=== PATIENT | female | born 1935 | race Caucasian/White ===

== ENCOUNTER 2018-04-01 13:40 | Observation (INO) | payer OTHER ==
--- NOTE | 2018-04-01 13:42 | PDOC ---
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 The patient reports getting out of her car, standing for a few moments, feeling lightheaded, and then falling to the ground. She remembers falling, hitting her head, and denies LOC. She then was unable to stand. She was eventually able to get back into her car. She sat for some time, was able to make it back into her apartment with her husbands help. She was in her recliner for 2d. She ambulated in her apartment yesterday with her walker. This AM she awoke with acute on chronic back and knee pain and decided to present for evaluation. Denies fevers/chills, recent illness, current QUISPE, vision changes, acute changes in sensation, chest pain, SOB, abdominal pain, N/V/C/D. 04/01/18 14:29 Past History - Past Medical History Allergies/Adverse Reactions: Allergies Allergy/AdvReac Type Severity Reaction Status Date / Time Penicillins Allergy Rash Verified 04/01/18 14:21 Home Medications: Ambulatory Orders Aspirin [ASA -] 81 mg PO DAILY 05/08/13 Atorvastatin Ca [Lipitor] 80 mg PO HS 05/08/13 Nebivolol HCl [Bystolic] 10 mg PO HS 05/08/13 Ranolazine [Ranexa -] 1,000 mg PO BID 05/08/13 Sertraline HCl [Zoloft -] 100 mg PO HS 05/08/13 Acetaminophen [Tylenol .Regular Strength -] 650 mg PO Q6H PRN #0 tablet Calcitonin-[place] [Miacalcin [place] -] 200 units NS DAILY #0 spray.pump 04/16/14 Calcium 250Mg/Vit-D 125 Units [Oscal 250 mg+D -] 1 combo PO BID #0 tablet Olmesartan Medoxomil [Benicar -] 20 mg PO DAILY #30 tablet 04/16/14 Beta-Carotene(A) W-C and E/Min [Ocuvite (Nf) -] 1 tab PO DAILY 04/01/18 Cholecalciferol (Vitamin D3) [Vitamin D3] 5,000 unit PO DAILY 04/01/18 Ezetimibe [Zetia] 10 mg PO DAILY 04/01/18 Icosapent Ethyl [Vascepa] 2 gm PO BID 04/01/18 Multivit/Folic Acid/Vit K1 [One-A-Day Women's 50 Plus Tab] 1 each PO DAILY 04/01 Vit B Complex 100 Combo No.2 [B-100 Complex] 100 mg PO DAILY 04/01/18 Anemia: No Asthma: No Cancer: No Cardiac Disorders: Yes (CARDIAC STENTS...3 years ago) CVA: No COPD: No CHF: No Dementia: No Diabetes: No GI Disorders: No Disorders: No HTN: Yes Hypercholesterolemia: No Liver Disease: No Psychiatric Problems: Yes (anxiety) Seizures: No Thyroid Disease: No - Surgical History Cholecystectomy: Yes (1994) - Suicide/Smoking/Psychosocial Hx Smoking Status: No Smoking History: Never smoked Have you smoked in the past 12 months: No Number of Cigarettes Smoked Daily: 0 Hx Alcohol Use: No Drug/Substance Use Hx: No Substance Use Type: None Hx Substance Use Treatment: No Review of Systems - Review of Systems Able to Perform ROS?: Yes Comments:: GENERAL/CONSTITUTIONAL: No fever or chills. No weakness HEAD, EYES, EARS, NOSE AND THROAT: No change in vision. No ear pain or discharge. No sore throat CARDIOVASCULAR: No chest pain or shortness of breath RESPIRATORY: Denies cough, hemoptysis GASTROINTESTINAL: No nausea, vomiting, diarrhea or constipation GENITOURINARY: No dysuria, frequency, or change in urination MUSCULOSKELETAL: per HPI SKIN: No rash NEUROLOGIC: No headache, vertigo, loss of consciousness, or change in strength/ sensation ENDOCRINE: No increased thirst. No abnormal weight change HEMATOLOGIC/LYMPHATIC: No anemia, easy bleeding ALLERGIC/IMMUNOLOGIC: No hives or skin allergy 04/01/18 14:31 Is the patient limited Israeli proficient: No *Physical Exam - Vital Signs Vital Signs Temp Pulse Resp BP Pulse Ox 97.7 F 80 16 170/80 100 04/01/18 13:41 04/01/18 13:41 04/01/18 13:41 04/01/18 13:41 04/01/18 13:41 04/01/18 14:31 - Physical Exam Comments: GENERAL: Awake, alert, and fully oriented, in no acute distress HEAD: left lateral orbital healing ecchymosis, no abrasion or laceration EYES: PERRLA, EOMI, sclera anicteric, conjunctiva clear ENT: Hearing grossly normal, nares patent, oropharynx clear without exudates. Moist mucosa LUNGS: No distress, speaks full sentences, clear to auscultation bilaterally HEART: Regular rate and rhythm, normal S1 and S2, no murmurs appreciated, peripheral pulses normal and equal bilaterally ABDOMEN: Soft, nontender, normoactive bowel sounds. No guarding, no rebound EXTREMITIES: No wounds or lesions. Strength 5/5 in BUE throughout. B/l knees w/ o palpable intraarticular effusion, overlying erythema, or bony TTP. No obvious BLE deformities. NEUROLOGICAL: Cranial nerves II through XII grossly intact. Normal speech, no focal sensorimotor deficits SKIN: 04/01/18 14:31 ED Treatment Course - LABORATORY CBC & Chemistry Diagram: 04/01/18 14:45 04/01/18 14:45 Medical Decision Making - Medical Decision Making The pt is an 83F w/ a history of HTN, OA, vertebral compression fractures who presents for evaluation for acute on chronic back and b/l knee pain s/p syncopal fall on 03/28/2018 (4d ORAL HYGIENIST). Pt w/ L lateral orbital healing ecchymosis w/o underlying bony crepitus. ED Course CMP, CBC, UA, UCx CT Head w/o, CXR ECG 04/01/18 14:39 No leukocytosis No anemia Lytes wnl No JUSTUS LFTs wnl 04/01/18 15:59 CT Head w/o evidence of acute bleed 04/01/18 16:33 L proximal tib/fib fx seen in L knee plain films -Will obtain dedicated tib/fib films Dispo: Admit for tib/fib fx 04/01/18 17:40 *DC/Admit/Observation/Transfer Diagnosis at time of Disposition: Syncope Qualifiers: Syncope type: unspecified Qualified Code(s): R55 - Syncope and collapse Fall Qualifiers: Encounter type: initial encounter Qualified Code(s): W19.XXXA - Unspecified fall, initial encounter Back pain Qualifiers: Back pain location: low back pain Chronicity: unspecified Back pain laterality : bilateral Sciatica presence: unspecified whether sciatica present Qualified Code(s): M54.5 - Low back pain Tibia/fibula fracture Qualifiers: Encounter type: initial encounter Fracture type: closed Laterality: left Qualified Code(s): S82.202A - Unspecified fracture of shaft of left tibia, initial encounter for closed fracture; S82.402A - Unspecified fracture of shaft of left fibula, initial encounter for closed fracture - Discharge Dispostion Disposition: INTERMEDIATE FACILITY Condition at time of disposition: Stable Decision to Admit order: Yes - Referrals - Patient Instructions - Post Discharge Activity
[2018-04-01 15:05] LABS: BASO % 0.4 % (0-2.0); EOS % 2.5 % (0-4.5); HEMATOCRIT 40.7 % (32.4-45.2); HEMOGLOBIN 13.1 GM/dl (10.7-15.3); LYMPH % 23.1 % (8-40); MCH 33.7 pg (25.7-33.7); MCHC 32.2 g/dl (32.0-36.0); MEAN CELL VOLUME 104.5 fl (80-96); MEAN PLT VOLUME 11.8 fl (7.5-11.1); MONO % 6.6 % (3.8-10.2); NEUT % 67.4 % (42.8-82.8); PLATELET COUNT 179 K/MM3 (134-434); RBC 3.89 M/mm3 (3.60-5.2); RDW 12.2 % (11.6-15.6); WHITE BLOOD COUNT 8.1 K/mm3 (4.0-10.8)
[2018-04-01 15:14] LABS: ALBUMIN 3.6 g/dl (3.4-5.0); ALK PHOS 78 U/L (45-117); ANION GAP 11 MMOL/L (8-16); BILIRUBIN,TOTAL 1.2 mg/dl (0.2-1); BLOOD UREA NITROGEN 20 mg/dl (7-18); CALCIUM 9.4 mg/dl (8.5-10); CHLORIDE 102 mmol/L (98-107); CO2 25 mmol/L (21-32); CREATININE 0.7 mg/dl (0.55-1.3); GLUCOSE,RANDOM 116 mg/dl (74-106); POTASSIUM 4.8 mmol/L (3.5-5.1); SGOT/AST 43 U/L (15-37); SGPT/ALT 29 U/L (13-61); SODIUM 138 mmol/L (136-145); TOT PROT 6.4 g/dl (6.4-8.2)
--- NOTE | 2018-04-01 17:36 | PDOC ---
Attending Attestation - Resident Resident Name: Roger Shaikh - ED Attending Attestation I have performed the following: I have examined & evaluated the patient, The case was reviewed & discussed with the resident, I agree w/resident's findings & plan, Exceptions are as noted - HPI HPI: 04/01/18 17:36 Reviewed Residents HPI - Physicial Exam PE: 04/01/18 17:36 Reviewed Residents PE - Medical Decision Making 04/01/18 19:09 83 years old with syncopal episode complicated by knee injury and low back injury On x-rays L2 compression fracture likely chronic. MRI ordered for comparisson Proximal tib-fib fracture nonoperative Orthopedics consult and limits medicine for telemetry for syncope workup and further management.
--- NOTE | 2018-04-01 17:46 | HP ---
CHIEF COMPLAINT: LE pain, syncope PCP: Dr. Young HISTORY OF PRESENT ILLNESS: Patient presents to -ER with a CC of fall/syncope and leg pain. Syncopized at home on ; didn't remember how she fell but remembered waking up; + LOC and she did hit her head with some resulting minor facial trauma with bruising around her eye. Speaking to her at length about this reveals that she was going from sitting to standing and had her BP checked and was on the low end before this happened (was after MD appointment); this is very suspect for orthostatic hypotension. She is afebrile and hemodynamically stable without any marked laboratory abnormalities. Orthopedics called by ER; recommends knee immobilizer and non-weightbearing. She doesn't need to be NPO. Review of her cardiac hx reveals a remote PCI; she is not sure she why she is on ranolazine but doesn't have any refractory anginal sx at this time. Denies CP, SOB, etc. Monitoring on telemetry with orthopedic consult. Thank you for allowing [facility] to take part in the ongoing care of this patient. PAST MEDICAL HISTORY: HTN, Osteoporosis, HLD, CAD s/p remote PCI PAST SURGICAL HISTORY: Social History: Denies alcohol, tobacco, or drug abuse Family History: Asked and noncontributory Allergies Penicillins Allergy (Verified 04/01/18 14:21) Rash HOME MEDICATIONS: Home Medications Medication Instructions Recorded Aspirin [ASA -] 81 mg PO DAILY 05/08/13 Atorvastatin Ca [Lipitor] 80 mg PO HS 05/08/13 Nebivolol HCl [Bystolic] 10 mg PO HS 05/08/13 Ranolazine [Ranexa -] 1,000 mg PO BID 05/08/13 Sertraline HCl [Zoloft -] 100 mg PO HS 05/08/13 Acetaminophen [Tylenol .Regular 650 mg PO Q6H PRN #0 tablet 04/16/14 Strength -] Calcitonin-[place] [Miacalcin Alpha 200 units NS DAILY #0 spray.pump 04/16/14 -] Calcium 250Mg/Vit-D 125 Units 1 combo PO BID #0 tablet 04/16/14 [Oscal 250 mg+D -] Olmesartan Medoxomil [Benicar -] 20 mg PO DAILY #30 tablet 04/16/14 Beta-Carotene(A) W-C and E/Min 1 tab PO DAILY 04/01/18 [Ocuvite (Nf)] Cholecalciferol (Vitamin D3) 5,000 unit PO DAILY 04/01/18 [Vitamin D3] Ezetimibe [Zetia] 10 mg PO DAILY 04/01/18 Icosapent Ethyl [Vascepa] 2 gm PO BID 04/01/18 Multivit/Folic Acid/Vit K1 1 each PO DAILY 04/01/18 [One-A-Day Women's 50 Plus Tab] Vit B Complex 100 Combo No.2 100 mg PO DAILY 04/01/18 [B-100 Complex] REVIEW OF SYSTEMS 10 sys ROS done and negative aside from HPI PHYSICAL EXAMINATION Vital Signs - 24 hr 04/01/18 13:41 Temperature 97.7 F Pulse Rate 80 Respiratory 16 Rate Blood Pressure 170/80 O2 Sat by Pulse 100 Oximetry (%) GENERAL: Awake, alert, and fully oriented, in no acute distress. HEAD: NC, trauma as per HPI with small bruising that appears healed, EOMI, PERRLA EYES: Pupils equal, round and reactive to light, extraocular movements intact EARS, NOSE, THROAT: Ears normal, nares patent, oropharynx clear without exudates. NECK: Normal range of motion, supple without lymphadenopathy, JVD, or masses. LUNGS: Breath sounds equal, clear to auscultation bilaterally. HEART: Regular rate and rhythm, normal S1 and S2 without murmur, rub or gallop. ABDOMEN: Soft, nontender, not distended, normoactive bowel sounds MUSCULOSKELETAL: Normal range of motion at all joints aside from LLE which is limited by pain. Affected extremity is neurovascularly intact NEUROLOGICAL: Cranial nerves II-XII intact. Normal speech. Normal gait. PSYCHIATRIC: Cooperative. Good eye contact. Appropriate mood and affect. SKIN: Warm, dry, normal turgor, no rashes or lesions noted, normal capillary refill. Laboratory Results - last 24 hr 04/01/18 04/01/18 14:45 14:45 WBC 8.1 RBC 3.89 Hgb 13.1 Hct 40.7 D MCV 104.5 H MCH 33.7 MCHC 32.2 RDW 12.2 Plt Count 179 MPV 11.8 H Absolute Neuts (auto) 5.4 Neutrophils % 67.4 Lymphocytes % 23.1 Monocytes % 6.6 Eosinophils % 2.5 Basophils % 0.4 Sodium 138 Potassium 4.8 Chloride 102 Carbon Dioxide 25 Anion Gap 11 BUN 20 H Creatinine 0.7 Creat Clearance w eGFR > 60 Random Glucose 116 H Calcium 9.4 Total Bilirubin 1.2 H AST 43 H ALT 29 Alkaline Phosphatase 78 Total Protein 6.4 Albumin 3.6 ASSESSMENT/PLAN: Patient presents for syncope found to have a LE fracture; orthopedics is following and expert opinion is appreciated. 1) Syncope -History suspicious for Orthostasis; check orthostatic VS but keeping in mind NWB on affected extremity so likely only lying to sititng. -Check echo and monitor on tele. Given history of CAD, HLD, she has sufficient risks to justify checking duplex. -CT head negative, no electrolyte abnormalities, no recurrance. No s/s ACS. -If needed can consider CV consult in AM depending on clinical presentation and further workup. 2) Tib/Fib fx -Imaging noted; management per orthopedic sgy -NWB, knee imobilizer, PT consult. -PRN Morphine with ATC APAP; PRN miralax. 3) ? Compression fx -No neurologic sx, no s/s cauda equina -MRI pending; old records pending. She has a known L2 compression fx. Compare and if needed consult sgy. 4) HTN -Continue home medications 5) HLD -Continue home medications; OP followup with ortho 6) CAD s/p remote PCI -History noted; no sx. Will continue home medications; encourage close OP followup FENA -LR@60cc/hr overnight -PRN replete -NPO after MN; start fluids when NPO -Per orthopedic sgy Full Code
[2018-04-01 17:57] LABS: PH,URINE 5.5 (4.5-8); URINE APPEARANCE Cloudy; URINE BILIRUBIN 1+ (NEGATIVE); URINE COLOR Dark; URINE GLUCOSE (UA) Negative (NEGATIVE); URINE KETONE 1+ (NEGATIVE); URINE LEUK ESTERASE Negative (NEGATIVE); URINE NITRITE Negative (NEGATIVE); URINE PROTEIN Trace (NEGATIVE); URINE UROBILINOGEN 0.2 (0.2-1.0)
[2018-04-01 20:35] VITALS: BMI 33.3
[2018-04-01] MEDS ORDERED: RANOLAZINE E.R. 500 MG TABLET (FP) ONE (21:53)
[2018-04-01] MEDS: ACETAMINOPHEN 325 MG TABLET (FP) PO SCH (21:55)
[2018-04-01] MEDS: ATORVASTATIN CA 80 MG TABLET (FP) PO SCH (21:56)
[2018-04-01] MEDS: HEPARIN NA (PORCINE) 5,000 UNITS/ML 1ML VIAL SQ SCH (21:56)
[2018-04-01] MEDS: OMEGA-3 ACID ETHYL ESTERS (FATTY-ACIDS) 1 GM CAPSULE (FP) PO SCH (21:56)
[2018-04-01] MEDS: NEBIVOLOL 10 MG TABLET (FP) PO SCH (21:56)
[2018-04-01] MEDS: SERTRALINE HCL 50 MG TABLET (FP) PO SCH (21:56)
[2018-04-01] MEDS: RANOLAZINE E.R. 1,000 MG TABLET (FP) PO SCH (21:56)
[2018-04-01] MEDS: CALCIUM 250MG/VIT-D 125 UNITS 1 COMBO TABLET PO SCH (21:57)
[2018-04-01] MEDS ORDERED: PATIENT'S OWN MEDICATION (NON-FORMULARY) (Icosapent Ethyl [Vascepa] 2 GM) PO SCH (22:00)
[2018-04-01] MEDS ORDERED: PATIENT'S OWN MEDICATION (NON-FORMULARY) (Sertraline Hcl [Zoloft -] 100 MG) PO SCH (22:00)
[2018-04-01] MEDS ORDERED: RANOLAZINE E.R. 500 MG TABLET (FP) PO SCH (22:00)
[2018-04-01] MEDS ORDERED: ATORVASTATIN CA 20 MG TABLET (FP) PO SCH (22:00)
[2018-04-01] MEDS ORDERED: CALCIUM 250MG/VIT-D 125 UNITS 1 COMBO TABLET PO SCH (22:00)
[2018-04-02] MEDS: morphine SULFATE 4 MG/ML VIAL IVPUSH PRN ×3 (00:17→21:51)
[2018-04-02] MEDS: ACETAMINOPHEN 325 MG TABLET (FP) PO SCH ×4 (06:03→21:48)
--- NOTE | 2018-04-02 07:23 | PN ---
Physical Exam: SUBJECTIVE: Patient seen and examined at bedside. Has back pain with movement, no pain when lying still. Has had no pain at all in left leg or left foot since the fall on 03/28/18. OBJECTIVE: Vital Signs Period Temp Pulse Resp BP Sys/Clay Pulse Ox Last 24 Hr 97.7 F-98.5 F 61-91 16-20 127-170/55-80 95-100 GENERAL: The patient is awake, alert, and fully oriented, in no acute distress. HEAD: small ecchymosis lateral left eye LUNGS: Breath sounds equal, clear to auscultation bilaterally, no wheezes, no crackles, no accessory muscle use. HEART: Regular rate and rhythm, S1, S2 ABDOMEN: Soft, nontender, nondistended LEFT LOWER EXT: in leg immobilizer; 2+ DP pulse, warm, well-perfused, ecchymosis 2nd and 3rd digits NEUROLOGICAL: Cranial nerves II through XII grossly intact. Normal speech, gait not observed. Laboratory Results - last 24 hr 04/01/18 04/01/18 04/01/18 14:45 14:45 17:30 WBC 8.1 RBC 3.89 Hgb 13.1 Hct 40.7 D MCV 104.5 H MCH 33.7 MCHC 32.2 RDW 12.2 Plt Count 179 MPV 11.8 H Absolute Neuts (auto) 5.4 Neutrophils % 67.4 Lymphocytes % 23.1 Monocytes % 6.6 Eosinophils % 2.5 Basophils % 0.4 Sodium 138 Potassium 4.8 Chloride 102 Carbon Dioxide 25 Anion Gap 11 BUN 20 H Creatinine 0.7 Creat Clearance w eGFR > 60 Random Glucose 116 H Calcium 9.4 Total Bilirubin 1.2 H AST 43 H ALT 29 Alkaline Phosphatase 78 Total Protein 6.4 Albumin 3.6 Urine Color Dark Urine Appearance Cloudy Urine pH 5.5 Ur Specific [place] >= 1.030 Urine Protein Trace Urine Glucose (UA) Negative Urine Ketones 1+ H Urine Blood Negative Urine Nitrite Negative Urine Bilirubin 1+ H Urine Urobilinogen 0.2 Ur Leukocyte Esterase Negative Active Medications Generic Name Dose Route Start Last Admin Trade Name Freq PRN Reason Stop Dose Admin Acetaminophen 650 mg 04/01/18 20:15 04/02/18 06:03 Tylenol - PO Not Given Q6H [facility] Aspirin 81 mg 04/02/18 10:00 Asa - PO DAILY [facility] Atorvastatin Calcium 80 mg 04/01/18 22:00 04/01/18 21:56 Lipitor - PO 80 mg HS [facility] Administration Calcitonin 200 units 04/02/18 10:00 Miacalcin [place] - NS DAILY [facility] Calcium/Vitamin D 1 tab 04/01/18 22:00 04/01/18 21:57 Oscal 250 Mg+D - PO Not Given BID [facility] Cholecalciferol 5,000 unit 04/02/18 10:00 Vitamin D3 - PO DAILY [facility] Ezetimibe 10 mg 04/02/18 10:00 Zetia - PO DAILY [facility] Heparin Sodium (Porcine) 5,000 unit 04/01/18 22:00 04/01/18 21:56 Heparin - SQ 5,000 unit BID [facility] Administration Morphine Sulfate 2 mg 04/01/18 19:55 04/02/18 00:17 Morphine Sulfate IVPUSH 2 mg Q4H PRN Administration PAIN LEVEL 7 - 10 Nebivolol 10 mg 04/01/18 22:00 04/01/18 21:56 Bystolic - PO 10 mg HS [facility] Administration Nilgg-2-Leeg Ethyl Esters 2 gm 04/01/18 22:00 04/01/18 21:56 Lovaza - PO 2 gm BID [facility] Administration Ranolazine 1,000 mg 04/01/18 22:00 04/01/18 21:56 Ranexa - PO 1,000 mg BID [facility] Administration Sertraline HCl 100 mg 04/01/18 22:00 04/01/18 21:56 Zoloft - PO 100 mg HS [facility] Administration Valsartan 160 mg 04/02/18 10:00 Diovan - PO DAILY [facility] Vitamin A 10,000 units 04/02/18 10:00 Aquasol A - PO DAILY [facility] ASSESSMENT/PLAN 83 year-old female with a PMH significant for HTN, HLD, CAD s/p PCI, OA, compression fractures, and lower extremity neuropathy. Placed on observation for syncopal episode on 03/28 which led to a fall-->+LOC-->right tib-fib fracture -->acute compression fracture L1. Syncope --serial troponins negative --ECG: not suggestive of acute ischemic event --CXR unremarkable --telemetry monitoring- no events --11/15/17 Echo: LV systolic normal, EF 60-65%; impaired LV relaxation; RV normal; mild AI; mild MR; mild TR; --US carotids: no hemodynamically significant stenosis --CT head negative --check orthostatics Right tib-fib fractures --04/01 xray left knee: proximal tib/fib fractures --Dr. Ch evaluating Acute L1 compression fracture --04/02 MRI lumbar spine: recent compression fracture L1 with edema Chronic compression fractures --L2, L1, L4, L5, T12 Hypertension --BP stable --continue valsartan, Bystolic Hyperlipidemia --continue Lipitor, Zetia Coronary artery disease s/p PCI --continue ASA, Bystolic, Ranexa Lower extremity neuropathy --continue sertraline FEN Fluids: NS@75mL/hr Electrolytes: replete as indicated Nutrition: NPO pending surgical evaluation DVT prophylaxis: SCDs left leg Physical therapy Dispo: continues to require observation. Full code. Visit type - Emergency Visit Emergency Visit: Yes ED Registration Date: 04/01/18 Care time: The patient presented to the Emergency Department on the above date and was hospitalized for further evaluation of their emergent condition. - New Patient This patient is new to me today: Yes Date on this admission: 04/02/18 - Critical Care Critical Care patient: No
[2018-04-02] MEDS ORDERED: OLMESARTAN MEDOXOMIL PO SCH (10:00)
[2018-04-02] MEDS ORDERED: PATIENT'S OWN MEDICATION (NON-FORMULARY) (Beta-Carotene(A) W-C And E/Min 1 TAB) PO SCH (10:00)
[2018-04-02] MEDS ORDERED: SODIUM CHLORIDE 1,000 ML IV SCH (10:00)
[2018-04-02] MEDS ORDERED: RANOLAZINE E.R. 500 MG TABLET (FP) ONE ×3 (10:15→21:37)
[2018-04-02] MEDS ORDERED: PT OWN MED DRAWER 7, Y5N ONE ×2 (10:15→21:37)
[2018-04-02] MEDS: ASPIRIN 81 MG CHEWABLE TABLETS PO SCH (10:25)
[2018-04-02] MEDS: VALSARTAN 160 MG TABLET (UD) PO SCH (10:25)
[2018-04-02] MEDS: OMEGA-3 ACID ETHYL ESTERS (FATTY-ACIDS) 1 GM CAPSULE (FP) PO SCH ×2 (10:25→21:49)
[2018-04-02] MEDS: CHOLECALCIFEROL (VITAMIN D3) 1,000 UNIT TABLET (FP) PO SCH (10:26)
[2018-04-02] MEDS: RANOLAZINE E.R. 1,000 MG TABLET (FP) PO SCH ×2 (10:27→21:48)
[2018-04-02] MEDS: EZETIMIBE 10 MG TABLET (FP) PO SCH (10:27)
[2018-04-02] MEDS: CALCITONIN - SALMON SYNTHETIC 3.7 ML SPRAY.PUMP NS SCH (10:27)
[2018-04-02] MEDS: CALCIUM 250MG/VIT-D 125 UNITS 1 COMBO TABLET PO SCH ×2 (10:28→22:17)
[2018-04-02] MEDS: HEPARIN NA (PORCINE) 5,000 UNITS/ML 1ML VIAL SQ SCH (10:28)
[2018-04-02] MEDS: VITAMIN A 10,000 UNITS CAPSULE PO SCH (14:17)
--- NOTE | 2018-04-02 15:50 | EKG ---
Test Reason : Blood Pressure : / mmHG Vent. Rate : 066 BPM Atrial Rate : 066 BPM P-R Int : 172 ms QRS Dur : 088 ms QT Int : 422 ms P-R-T Axes : 057 015 024 degrees QTc Int : 442 ms POOR DATA QUALITY, INTERPRETATION MAY BE ADVERSELY AFFECTED NORMAL SINUS RHYTHM CANNOT RULE OUT INFERIOR INFARCT (CITED ON OR BEFORE 18-APR-2001) ABNORMAL ECG WHEN COMPARED WITH ECG OF 14-APR-2014 19:27, T WAVE INVERSION NO LONGER EVIDENT IN INFERIOR LEADS NONSPECIFIC T WAVE ABNORMALITY HAS REPLACED INVERTED T WAVES IN ANTERIOR LEADS Confirmed by Jerod Montez ([id number]) on 04/02/2018 3:50:41 PM Referred By: BLAKE Confirmed By:Jerod Montez
--- NOTE | 2018-04-02 15:50 | EKG ---
Test Reason : Blood Pressure : / mmHG Vent. Rate : 065 BPM Atrial Rate : 065 BPM P-R Int : 170 ms QRS Dur : 088 ms QT Int : 430 ms P-R-T Axes : 066 027 051 degrees QTc Int : 447 ms NORMAL SINUS RHYTHM POSSIBLE INFERIOR INFARCT (CITED ON OR BEFORE 18-APR-2001) ABNORMAL ECG WHEN COMPARED WITH ECG OF 01-APR-2018 17:14, NO SIGNIFICANT CHANGE WAS FOUND Confirmed by Jerod Montez ([id number]) on 04/02/2018 3:50:29 PM Referred By: Adelina MARTIN NP Confirmed By:Jerod Montez
--- NOTE | 2018-04-02 17:05 | CONSULT ---
Consult - text type - Consultation Consultation Note: FULL CONSULT DICTATED IMP: L PROX TIB/FIB FX AND L1 COMPRESSION FX PLAN: CL TX IN KNEE IMMOBILIZER, ANALGESICS FOR COMPRESSION FX
--- NOTE | 2018-04-02 17:38 | CONS ---
DATE OF CONSULTATION: ORTHOPEDIC CONSULTATION HISTORY OF PRESENT ILLNESS: The patient is an 83-year-old female status post a fall a few days ago complaining of persistent pain in her left leg, also persistent pain in her back. Patient has been recently diagnosed with a compression fracture of her spine but she was seen in the emergency room complaining of increased pain in the left leg. After a full x-ray revealed a fracture, and she was admitted. A questionable syncopal episode that was involved as well. On physical exam, patient was alert and oriented, and daughter were both present for the physical examination. She has a tenderness over her proximal tibia. Calf is soft, nontender. Adequate range of motion of her knee, ankle, and toes neurovascularly intact, mild swelling, no ecchymosis to motion of her hip. She does have pain in her lower spine especially with flexion and extension but no and otherwise neurovascularly intact, denies complaints or any other neurological deficits. X-rays show a nondisplaced left proximal tibia-fibula fracture about the level of the tibial tubercle for the tibia and lower down in the fibula, but completely nondisplaced. MRI shows an acute L1 compression fracture. IMPRESSION: 1. Left proximal tibia-fibula fracture nondisplaced, applying closed treatment, knee immobilizer, non-weightbearing, physical therapy. 2. L1 compression fracture, nothing to do except for analgesics and to mobilize with physical therapy. Patient can be discharged once medically cleared from a medical standpoint to be transferred to a short-term nursing facility. QUYEN PEDERSON M.D. ANKIT/[id number]
[2018-04-02] MEDS: SERTRALINE HCL 50 MG TABLET (FP) PO SCH (21:48)
[2018-04-02] MEDS: ATORVASTATIN CA 80 MG TABLET (FP) PO SCH (21:49)
[2018-04-02] MEDS: NEBIVOLOL 10 MG TABLET (FP) PO SCH (21:53)
[2018-04-03] MEDS: ACETAMINOPHEN 325 MG TABLET (FP) PO SCH ×3 (06:17→16:16)
[2018-04-03] MEDS: morphine SULFATE 4 MG/ML VIAL IVPUSH PRN ×2 (08:00→16:17)
[2018-04-03] MEDS: RANOLAZINE E.R. 1,000 MG TABLET (FP) PO SCH (10:00)
[2018-04-03] MEDS: VALSARTAN 160 MG TABLET (UD) PO SCH (10:00)
[2018-04-03] MEDS: ASPIRIN 81 MG CHEWABLE TABLETS PO SCH (10:00)
[2018-04-03] MEDS: CALCITONIN - SALMON SYNTHETIC 3.7 ML SPRAY.PUMP NS SCH (10:00)
[2018-04-03] MEDS: CALCIUM 250MG/VIT-D 125 UNITS 1 COMBO TABLET PO SCH (10:00)
[2018-04-03] MEDS: VITAMIN A 10,000 UNITS CAPSULE PO SCH (10:00)
[2018-04-03] MEDS: CHOLECALCIFEROL (VITAMIN D3) 1,000 UNIT TABLET (FP) PO SCH (10:00)
[2018-04-03] MEDS: OMEGA-3 ACID ETHYL ESTERS (FATTY-ACIDS) 1 GM CAPSULE (FP) PO SCH (10:00)
[2018-04-03] MEDS: EZETIMIBE 10 MG TABLET (FP) PO SCH (10:00)
--- NOTE | 2018-04-03 10:54 | DS ---
Physical Exam: SUBJECTIVE: Patient seen and examined OBJECTIVE: Vital Signs Period Temp Pulse Resp BP Sys/Clay Pulse Ox Last 24 Hr 97.6 F-98.0 F 56-72 18-19 115-149/29-62 90-95 PHYSICAL EXAM GENERAL: The patient is awake, alert, and fully oriented, in no acute distress. HEAD: Normal with no signs of trauma. EYES: PERRL, extraocular movements intact, sclera anicteric, conjunctiva clear. ENT: Ears normal, nares patent, oropharynx clear without exudates, moist mucous membranes. NECK: Trachea midline, full range of motion, supple. LUNGS: Breath sounds equal, clear to auscultation bilaterally, no wheezes, no crackles, no accessory muscle use. HEART: Regular rate and rhythm, S1, S2 without murmur, rub or gallop. ABDOMEN: Soft, nontender, nondistended, normoactive bowel sounds, no guarding, no rebound, no hepatosplenomegaly, no masses. EXTREMITIES: 2+ pulses, warm, well-perfused, no edema. NEUROLOGICAL: Cranial nerves II through XII grossly intact. Normal speech, gait not observed. PSYCH: Normal mood, normal affect. SKIN: Warm, dry, normal turgor, no rashes or lesions noted. LABS Laboratory Results - last 24 hr 04/01/18 04/02/18 09:00 15:30 Troponin I < 0.03 Vitamin B12 794 Serum Folate 59 H HOSPITAL COURSE: Date of Admission:04/01/18 Date of Discharge: 04/03/18 Discharge Summary Reason For Visit: BACK PAIN,SYNCOPE,FX OF PROXIMAL END OF TIBIA AND Current Active Problems Back pain (Acute) Fall (Acute) Syncope (Acute) Condition: Fair - Instructions - Home Medications Comprehensive Discharge Medication List: Ambulatory Orders Aspirin [ASA -] 81 mg PO DAILY 05/08/13 Atorvastatin Ca [Lipitor] 80 mg PO HS 05/08/13 Nebivolol HCl [Bystolic] 10 mg PO HS 05/08/13 Ranolazine [Ranexa -] 1,000 mg PO BID 05/08/13 Sertraline HCl [Zoloft -] 100 mg PO HS 05/08/13 Acetaminophen [Tylenol .Regular Strength -] 650 mg PO Q6H PRN #0 tablet Calcitonin-[place] [Miacalcin [place] -] 200 units NS DAILY #0 spray.pump 04/16/14 Calcium 250Mg/Vit-D 125 Units [Oscal 250 mg+D -] 1 combo PO BID #0 tablet Olmesartan Medoxomil [Benicar -] 20 mg PO DAILY #30 tablet 04/16/14 Beta-Carotene(A) W-C and E/Min [Ocuvite (Nf)] 1 tab PO DAILY 04/01/18 Cholecalciferol (Vitamin D3) [Vitamin D3] 5,000 unit PO DAILY 04/01/18 Ezetimibe [Zetia] 10 mg PO DAILY 04/01/18 Icosapent Ethyl [Vascepa] 2 gm PO BID 04/01/18 Multivit/Folic Acid/Vit K1 [One-A-Day Women's 50 Plus Tab] 1 each PO DAILY 04/01 Vit B Complex 100 Combo No.2 [B-100 Complex] 100 mg PO DAILY 04/01/18
[2018-04-03 14:01] VITALS: BP 102/41; PULSE 62; TEMP 98.4
== END 2018-04-03 18:50 ==
LOC: FER 13:40 → FM/S 17:37
PROVIDERS: ADMIT Internal Medicine; ATTEND Nurse Practitioner Acute Care
PROC: 2W3RX1Z Immobilization of Left Lower Leg using Splint (ICD-10-PCS; principal; 2018-04-01)
PROC: 3E033NZ Introduction of Analgesics, Hypnotics, Sedatives into Peripheral Vein, Percutaneous Approach (ICD-10-PCS; 2018-04-01)
PROC: 3E0337Z Introduction of Electrolytic and Water Balance Substance into Peripheral Vein, Percutaneous Approach (ICD-10-PCS; 2018-04-01)
PROC: 3E013GC Introduction of Other Therapeutic Substance into Subcutaneous Tissue, Percutaneous Approach (ICD-10-PCS; 2018-04-01)
DX: R55 Syncope and collapse (principal); M54.5 Low back pain; I10 Essential (primary) hypertension; I25.10 Atherosclerotic heart disease of native coronary artery without angina pectoris; E78.5 Hyperlipidemia, unspecified; G62.9 Polyneuropathy, unspecified; M19.90 Unspecified osteoarthritis, unspecified site; S82.102A Unspecified fracture of upper end of left tibia, initial encounter for closed fracture; S82.832A Other fracture of upper and lower end of left fibula, initial encounter for closed fracture; S32.019A Unspecified fracture of first lumbar vertebra, initial encounter for closed fracture; W18.39XA Other fall on same level, initial encounter; Y93.89 Activity, other specified; Y92.89 Other specified places as the place of occurrence of the external cause
CPT/HCPCS: 29515; 36415; 70450-TC; 71045-TC-FY; 72100-TC-FY; 72148-TC; 73562-TC-LT-FY; 73562-TC-RT-FY; 73590-TC-LT-FY; 73610-TC-LT-FY; 73630-TC-LT; 80053; 81003; 82607; 82746; 84484; 85025; 87086; 93005; 93880-TC; 96372; 96374; 97116-GP; 97162-GP; 99285-25; G0378; J1644; J7030

== ENCOUNTER 2024-07-30 06:58 | Day surgery (SDC) | payer OTHER ==
[2024-07-24 11:32] VITALS: BMI 30.9
[2024-07-30] MEDS ORDERED: LIDOCAINE 1% P/F 10 MG/ML VIAL ONE (07:17)
[2024-07-30] MEDS ORDERED: EPINEPHrine 1:1000 P/F - 1 MG/ML AMP ONE (07:18)
[2024-07-30] MEDS ORDERED: BSS (NA/CA/MG/K) BALANCED SALT SOLUTION OPHTH SOLN 15 ML BOTTLE ONE (07:18)
[2024-07-30] MEDS ORDERED: NEO/POLYMYX B SULF/DEXAMETH OPHTHALMIC 5ML BOTTLE ONE (07:18)
[2024-07-30] MEDS ORDERED: TETRACAINE 0.5% OPHTH SOLN 2 ML BOTTLE ONE (07:18)
[2024-07-30] MEDS: PHENYLEPHRINE 2.5% OPTHALMIC DROP 2ML BOTTLE ONE (07:25)
[2024-07-30] MEDS: TROPICAMIDE 1% 3 ML EYE DROPS ONE (07:25)
[2024-07-30] MEDS: CYCLOPENTOLATE 2% OPHTH SOLN 2 ML BOTTLE ONE (07:25)
[2024-07-30] MEDS: CIPROFLOXACIN 0.3% EYE DROPS 5 ML BOTTLE ONE (07:25)
[2024-07-30 07:32] VITALS: TEMP 97
[2024-07-30] MEDS ORDERED: MIDAZOLAM HCL 2 MG/2 ML SINGLE DOSE VIAL ONE (08:40)
[2024-07-30 09:25] VITALS: RESP 20
[2024-07-30 09:40] VITALS: BP 110/74; PULSE 67
== END 2024-07-30 09:44 | disposition home or self-care (01) ==
LOC: FASU 06:58
PROVIDERS: ATTEND Ophthalmology
PROC: 08RK3JZ Replacement of Left Lens with Synthetic Substitute, Percutaneous Approach (ICD-10-PCS; principal; 2024-07-30 08:44)
DX: H26.8 Other specified cataract (principal)
CPT/HCPCS: 66984; V2632